=== PATIENT | male | born 1975 | race Caucasian/White ===

== ENCOUNTER 2021-09-26 09:56 | Emergency (ER) | payer MEDICAID ==
[~2021-09-26] VITALS: Ht 167.6 cm; Wt 72.7 kg
[2021-09-26 10:43] LABS: BASOPHILS # (AUTO) 0.1 X10'3 (0-0.2); EOSINOPHILS # (AUTO) 0.2 X10'3 (0-0.9); PLATELET COUNT 576 X10'3 (140-440)
[2021-09-26 10:44] LABS: BASOPHILS % (AUTO) 0.7 % (0-1); EOSINOPHILS % (AUTO) 1.8 % (0-6); LYMPHOCYTES # (AUTO) 2.9 X10'3 (1.1-4.8); LYMPHOCYTES % (AUTO) 22.5 % (21-51); MEAN PLATELET VOLUME 8.3 FL (7.4-10.4); MONOCYTES # (AUTO) 0.6 X10'3 (0-0.9); MONOCYTES % (AUTO) 4.5 % (2-12); NEUTROPHILS % (AUTO) 70.5 % (42-75); WHITE BLOOD COUNT 12.8 X10'3 (4.5-11.0)
[2021-09-26 11:15] LABS: ALANINE AMINOTRANSFERASE 43 U/L (12-78); ALBUMIN 2.8 G/DL (3.4-5.0); ALBUMIN/GLOBULIN RATIO 0.6 (1.1-1.5); ALKALINE PHOSPHATASE 146 IU/L (46-116); ANION GAP 10 (8-16); ASPARTATE AMINO TRANSFERASE 55 U/L (10-37); BILIRUBIN,TOTAL 0.5 MG/DL (0.1-1.0); BLOOD UREA NITROGEN 14 MG/DL (7-18); BUN/CREATININE RATIO 22.6 (5.4-32.0); CALCIUM 8.3 MG/DL (8.5-10.1); CHLORIDE 101 MMOL/L (99-107); CREATININE 0.62 MG/DL (0.60-1.10); GLUCOSE 89 MG/DL (70-104); POTASSIUM 4.3 MMOL/L (3.5-5.1); SODIUM 139 MMOL/L (135-145); TOTAL CARBON DIOXIDE 28.2 MMOL/L (24-32); TOTAL PROTEIN 7.4 G/DL (6.4-8.2); eGFR > 90 ML/MIN
[2021-09-26 11:39] LABS: RED BLOOD COUNT 5.31 X10'6 (4.70-6.10)
[2021-09-26 11:40] LABS: HEMATOCRIT 28.4 % (42.0-52.0); HEMOGLOBIN 8.8 g/dl (14.0-17.9); MEAN CORPUSCULAR HEMOGLOBIN 16.5 PG (27.0-31.0); MEAN CORPUSCULAR VOLUME 53.4 FL (78-98); RED CELL DISTRIBUTION WIDTH 21.8 % (11.5-14.5)
--- NOTE | 2021-09-26 12:27 | NUR ---
Patient falls asleep repeatedly during assessment.
[2021-09-26 13:04] VITALS: BP 122/73
--- NOTE | 2021-09-26 13:04 | NUR ---
Patient given sandwich and water upon discharge.
[2021-09-26] MEDS ORDERED: LIDOcaine 1% W/epiNEPHrine 1:100,000 20ml vial SQ ONE (13:05)
[2021-09-26] MEDS ORDERED: sulfamethoxazole/trimethoprim DS (800/160mg) tablet PO ONE (13:05)
[2021-09-26 14:10] LABS: PLATELET ESTIMATE INCREASED; POLYCHROMASIA 1+
[2021-09-26 14:11] LABS: ANISOCYTOSIS 3+; MICROCYTOSIS 3+
[2021-09-26 14:12] LABS: TARGET CELLS FEW
[2021-09-26 14:13] LABS: ELLIPTOCYTES FEW; HYPOCHROMASIA 1+; TEAR DROP CELLS FEW
[2021-09-26 14:14] LABS: LARGE PLATELETS FEW
[2021-09-26] MEDS ORDERED: SULF1TAB49 PO ×3 (14:51→14:57)
== END 2021-09-26 15:38 | disposition home or self-care (01) ==
LOC: ER 09:57
DX: L02.511 Cutaneous abscess of right hand (principal); R10.9 Unspecified abdominal pain; D72.829 Elevated white blood cell count, unspecified; F15.10 Other stimulant abuse, uncomplicated; Z79.899 Other long term (current) drug therapy
CPT/HCPCS: 10060; 36415; 80053; 85008; 85025; 93971; 99284

== ENCOUNTER 2022-02-11 19:41 | Inpatient (IN) | payer MEDICAID ==
[~2022-02-11] VITALS: Ht 167.6 cm; Wt 72.7 kg
[2022-02-11 20:22] LABS: ALANINE AMINOTRANSFERASE 21 U/L (12-78); ALBUMIN 2.3 G/DL (3.4-5.0); ALBUMIN/GLOBULIN RATIO 0.4 (1.1-1.5); ALKALINE PHOSPHATASE 197 IU/L (46-116); ANION GAP 6 (8-16); ASPARTATE AMINO TRANSFERASE 32 U/L (10-37); BILIRUBIN,TOTAL 0.2 MG/DL (0.1-1.0); BLOOD UREA NITROGEN 21 MG/DL (7-18); BUN/CREATININE RATIO 25.9 (5.4-32.0); CALCIUM 8.7 MG/DL (8.5-10.1); CHLORIDE 101 MMOL/L (99-107); CREATININE 0.81 MG/DL (0.60-1.10); GLUCOSE 101 MG/DL (70-104); POTASSIUM 4.3 MMOL/L (3.5-5.1); SODIUM 137 MMOL/L (135-145); TOTAL CARBON DIOXIDE 30.4 MMOL/L (24-32); TOTAL PROTEIN 7.7 G/DL (6.4-8.2); eGFR > 90 ML/MIN
[2022-02-11 20:46] LABS: HEMATOCRIT 26.6 % (42.0-52.0); HEMOGLOBIN 8.1 g/dl (14.0-17.9); MEAN CORPUSCULAR HEMOGLOBIN 15.8 PG (27.0-31.0); MEAN CORPUSCULAR HGB CONC 30.5 g/dL (33.0-36.5); MEAN CORPUSCULAR VOLUME 51.9 FL (78-98); MEAN PLATELET VOLUME 8.4 FL (7.4-10.4); PLATELET COUNT 501 X10'3 (140-440); RED BLOOD COUNT 5.13 X10'6 (4.70-6.10); WHITE BLOOD COUNT 12.5 X10'3 (4.5-11.0)
[2022-02-11 20:55] LABS: NUCLEATED RED BLOOD CELLS 2 /100WBC (0-0); TOTAL CELLS COUNTED 100
[2022-02-11 20:56] LABS: ANISOCYTOSIS 3+; HYPOCHROMASIA 2+; MICROCYTOSIS 3+; PLATELET ESTIMATE INCREASED; POLYCHROMASIA 1+
[2022-02-11 20:57] LABS: LARGE PLATELETS FEW; SPHEROCYTES 1+; TARGET CELLS FEW
[2022-02-11] MEDS ORDERED: aspirin 325mg tablet PO ONE (21:10)
[2022-02-12] VITALS (10 sets, daily range): BP systolic 80–131; BP diastolic 50–84
[2022-02-12] MEDS ORDERED: HYDROcodone/acetaminophen 5mg/325mg tablet PO PRN (00:05)
[2022-02-12] MEDS ORDERED: diphenhydrAMINE 25mg capsule PO PRN (00:05)
[2022-02-12] MEDS ORDERED: metoprolol tartrate 1mg/ml inj IV PRN (00:05)
[2022-02-12] MEDS ORDERED: aminophylline 250mg/10ml inj. IV PRN (00:05)
[2022-02-12] MEDS ORDERED: regadenoson 0.4mg/5ml syringe IV PRN (00:05)
[2022-02-12] MEDS ORDERED: diphenhydrAMINE 50 mg/ml inj IV PRN (00:05)
[2022-02-12] MEDS ORDERED: nitroGLYCERIN 0.4mg SUBLingual tab SL PRN (00:05)
[2022-02-12] MEDS ORDERED: ondansetron 4mg rapidly disintigrating tab PO PRN (00:05)
[2022-02-12] MEDS ORDERED: mag hydrox/Alum hydrox/simeth 30ml oral suspension PO PRN (00:05)
[2022-02-12] MEDS ORDERED: acetaminophen 650mg rectal suppository RC PRN (00:05)
[2022-02-12] MEDS ORDERED: morphine 2 MG/ML inj. syringe IV PRN (00:05)
[2022-02-12] MEDS ORDERED: HYDROmorphone inj. 0.5 MG/0.5 ML DISP.SYRIN IV PRN (00:05)
[2022-02-12] MEDS ORDERED: magnesium hydroxide 30ml (MOM) UD suspension PO PRN (00:05)
[2022-02-12] MEDS ORDERED: metoclopramide 5 mg/ml inj IV PRN (00:05)
[2022-02-12] MEDS ORDERED: bisacodyl 10mg suppository rectal RC PRN (00:05)
[2022-02-12] MEDS ORDERED: acetaminophen 325mg tablet PO PRN ×2 (00:05)
[2022-02-12 00:48] LABS: MAGNESIUM 2.1 MG/DL (1.5-2.4); PHOSPHORUS 3.8 MG/DL (2.3-4.5)
[2022-02-12] MEDS ORDERED: NO HOME MEDS (01:26)
[2022-02-12 01:50] LABS: APTT 23 SECONDS (22-32); D-DIMER 0.78 MG/L FEU (0-0.50)
[2022-02-12] MEDS: heparin, porcine 5000 units/ml vial SQ SCH ×2 (07:13→19:11)
[2022-02-12] MEDS: pantoprazole 40mg Tablet.DR PO SCH (07:13)
[2022-02-12] MEDS: docusate sod 100mg capsule PO SCH ×2 (07:14→19:11)
[2022-02-12] MEDS: normal saline 1000ml 1,000 ML IV SCH ×3 (07:14→19:25)
[2022-02-12] MEDS ORDERED: magnesium 4gm in 100ml NS 100 ML IV PRN (08:25)
[2022-02-12] MEDS ORDERED: magnesium Cl slow-release 64mg tablet PO PRN (08:25)
[2022-02-12] MEDS ORDERED: PERFLUTREN PROTEIN-A MICROSPHR (Optison) 0.22 MG/ML 3ML VIAL IV ONE (08:25)
[2022-02-12] MEDS ORDERED: potassium CL 10mEq/100ml bag 100 ML IV PRN (08:25)
[2022-02-12] MEDS ORDERED: potassium Cl 20 mEq SR tablet PO PRN ×2 (08:25)
[2022-02-12] MEDS: aspirin 81mg tab.chew PO SCH (08:30)
[2022-02-12] MEDS ORDERED: iohexol 350MG/ML 100ml bottle IV ONE (08:38)
--- NOTE | 2022-02-12 08:43 | NUR ---
TRIED TO CALL REPORT ON PT ,PRIMARY RN IS BUSY DOING MED PASS AND SHE WILL CALL ME IN 5 MINS.
--- NOTE | 2022-02-12 09:00 | NUR ---
Patient in room PCU 3017. I have received report from Quinton RUCKER and had the opportunity to ask questions and assume patient care.
[2022-02-12 09:55] LABS: % IRON SATURATION 6 % (11-46); IRON 22 UG/DL (53-167); TOTAL IRON BINDING CAPACITY 349 UG/DL (259-388)
[2022-02-12 10:00] LABS: CHOL/HDL RATIO 2.7 (0.00-4.99); CHOLESTEROL 138 MG/DL (0-200); HDL CHOLESTEROL 52 MG/DL (35-60); LDL CHOLESTEROL 77 MG/DL (50-100); TRIGLYCERIDES 47 MG/DL (20-135)
--- NOTE | 2022-02-12 10:53 | NUR ---
Paged Dr. Warren regarding results of patients test. Message: [id number], Darío Colon. Radiology called looking for you, they said pt has masses in abdomen, possible cancer. He is putting in the notes/rec now. Aliyah [facility] 1510.
[2022-02-12 11:01] LABS: FERRITIN 15 NG/ML (26-388)
--- NOTE | 2022-02-12 12:12 | NUR ---
Paged Dr. Warren regarding results from [facility] are back and pts is begging for food. Message: [id number], Darío Colon. Results from [facility] are back. Pt is following me around the unit begging for food. Can I please get him some food? Aliyah 1636.
[2022-02-12 15:25] LABS: CLARITY,URINE CLEAR (Clear); COLOR,URINE YELLOW (Yellow); GLUCOSE, URINE NEGATIVE (Neg); KETONES,URINE NEGATIVE (Neg); LEUKOCYTE ESTERASE ,URINE NEGATIVE (Neg); NITRITES, URINE NEGATIVE (Neg); OCCULT BLOOD,URINE NEGATIVE (Neg); PROTEIN,URINE NEGATIVE (Neg); UROBILINOGEN,URINE 0.2 E.U/dL (0.2-1.0)
[2022-02-12 15:27] LABS: UA COLLECTION TYPE NON-SPECIFIED
[2022-02-12 15:30] LABS: URINE AMPHETAMINE SCREEN POSITIVE (Neg); URINE BARBITUATE SCREEN NEGATIVE (Neg); URINE BENZODIAZEPINES SCREEN NEGATIVE (Neg); URINE CANNABINOID SCREEN NEGATIVE (Neg); URINE COCAINE SCREEN NEGATIVE (Neg); URINE METHADONE SCREEN NEGATIVE (Neg); URINE OPIATE SCREEN NEGATIVE (Neg); URINE PHENCYCLIDINE SCREEN NEGATIVE (Neg)
--- NOTE | 2022-02-12 15:50 | NUR ---
Patient is requesting for his back to be looked at, he states he can taste spinal fluid at times. He says his back is in a lot of pain. More than it ever has been. Message: [id number], Darío Colon. Patients UA and tox screen results came back. He is also requesting for his back to be looked at while he's here. He says its extremely painful, it looks like he has had previous surgeries. Aliyah [facility] 9795.
[2022-02-12] MEDS: HYDROcodone/acetaminophen 10/325mg tab PO PRN (17:52)
--- NOTE | 2022-02-12 18:24 | NUR ---
Problems reprioritized. Patient report given, questions answered & plan of care reviewed with Isabel RUCKER, patient stable at transfer of care.
--- NOTE | 2022-02-12 18:24 | NUR ---
Patient in room PCU 3017. I have received report from Aliyah RUCKER and had the opportunity to ask questions and assume patient care.
[2022-02-12] MEDS: ondansetron/PF 4mg/2ml inj IV PRN (19:11)
[2022-02-12] MEDS: morphine 2 MG/ML inj. syringe IV PRN (19:20)
[2022-02-12] MEDS: K and/or MAG REPLACEMENT MC SCH (19:42)
[2022-02-12] MEDS: diatr meglu/diatrizoate 30ml oral sol.-(3 dose) bottle PO SCH (20:55)
[2022-02-12] MEDS ORDERED: temazepam 15mg capsule PO PRN (21:00)
[2022-02-13 02:00] VITALS: BP 120/76
[2022-02-13] MEDS: normal saline 1000ml 1,000 ML IV SCH (04:10)
[2022-02-13] MEDS: HYDROcodone/acetaminophen 10/325mg tab PO PRN ×2 (04:47→18:58)
[2022-02-13] MEDS: morphine 2 MG/ML inj. syringe IV PRN ×4 (06:06→19:51)
--- NOTE | 2022-02-13 06:17 | NUR ---
Problems reprioritized. Patient report given, questions answered & plan of care reviewed with Aliyah RUCKER.
--- NOTE | 2022-02-13 06:20 | NUR ---
Patient in room PCU 3017. I have received report from Isabel RUCKER and had the opportunity to ask questions and assume patient care.
[2022-02-13] MEDS: pantoprazole 40mg Tablet.DR PO SCH (07:07)
[2022-02-13] MEDS: diatr meglu/diatrizoate 30ml oral sol.-(3 dose) bottle PO SCH ×2 (07:08→10:30)
[2022-02-13 07:15] VITALS: BP 125/82
[2022-02-13 07:27] LABS: MEAN PLATELET VOLUME 8.7 FL (7.4-10.4); PLATELET COUNT 447 X10'3 (140-440); WHITE BLOOD COUNT 9.9 X10'3 (4.5-11.0)
[2022-02-13 07:47] LABS: ALANINE AMINOTRANSFERASE 21 U/L (12-78); ALBUMIN/GLOBULIN RATIO 0.4 (1.1-1.5); ALKALINE PHOSPHATASE 178 IU/L (46-116); ANION GAP 4 (8-16); ASPARTATE AMINO TRANSFERASE 38 U/L (10-37); BILIRUBIN,TOTAL 0.2 MG/DL (0.1-1.0); BLOOD UREA NITROGEN 18 MG/DL (7-18); BUN/CREATININE RATIO 26.5 (5.4-32.0); CALCIUM 7.8 MG/DL (8.5-10.1); CHLORIDE 103 MMOL/L (99-107); CHOL/HDL RATIO 2.7 (0.00-4.99); CHOLESTEROL 126 MG/DL (0-200); CREATININE 0.68 MG/DL (0.60-1.10); GLUCOSE 94 MG/DL (70-104); HDL CHOLESTEROL 47 MG/DL (35-60); LDL CHOLESTEROL 63 MG/DL (50-100); MAGNESIUM 1.8 MG/DL (1.5-2.4); POTASSIUM 4.5 MMOL/L (3.5-5.1); SODIUM 136 MMOL/L (135-145); TOTAL CARBON DIOXIDE 29.1 MMOL/L (24-32); TOTAL PROTEIN 6.6 G/DL (6.4-8.2); TRIGLYCERIDES 45 MG/DL (20-135); eGFR > 90 ML/MIN
[2022-02-13] MEDS: heparin, porcine 5000 units/ml vial SQ SCH ×2 (08:00→19:54)
[2022-02-13] MEDS: K and/or MAG REPLACEMENT MC SCH ×2 (08:00→20:00)
[2022-02-13 08:21] LABS: HEMATOCRIT 22.1 % (42.0-52.0); MEAN CORPUSCULAR HEMOGLOBIN 16.6 PG (27.0-31.0); MEAN CORPUSCULAR HGB CONC 31.6 g/dL (33.0-36.5); MEAN CORPUSCULAR VOLUME 52.7 FL (78-98); RED CELL DISTRIBUTION WIDTH 21.2 % (11.5-14.5)
[2022-02-13] MEDS: aspirin 81mg tab.chew PO SCH (08:30)
--- NOTE | 2022-02-13 08:30 | NUR ---
Paged Dr. Warren regarding pts critical Hgb of 7.0. Message: [id number], Darío Colon. Pt has a critical Hgb of 7.0, hct 22.1. [facility] 2160.
[2022-02-13 08:54] LABS: PLATELET ESTIMATE INCREASED; TOTAL CELLS COUNTED 100
[2022-02-13 08:55] LABS: ANISOCYTOSIS 3+; HYPOCHROMASIA 2+; MICROCYTOSIS 3+; SCHISTOCYTES FEW
[2022-02-13 08:56] LABS: LARGE PLATELETS FEW
[2022-02-13] MEDS: docusate sod 100mg capsule PO SCH ×2 (09:25→18:57)
[2022-02-13] MEDS: sodium ferric gluc complex inj 125 MG in normal saline 100ml IV soln 100 ML IV SCH (09:25)
[2022-02-13] MEDS ORDERED: iohexol 300mg/ml 100ml inj. ONE (10:41)
[2022-02-13] MEDS: nicotine 21mg patch - 24 hr TD SCH (10:42)
[2022-02-13 11:00] VITALS: BP 123/77
[2022-02-13 11:53] LABS: OCCULT BLOOD STOOL NEGATIVE (Neg)
--- NOTE | 2022-02-13 12:13 | NUR ---
Paged Dr. Warren regarding whether patient can eat. He is back from CT. Message: [id number], Darío Colon. Pt is back from his CT, he is begging for food again. Is it ok to restart diet? Aliyah [facility] 8824.
--- NOTE | 2022-02-13 12:29 | NUR ---
Met with patient in regards to substance use and to see if patient wanted any resources for treatment options. Patient is interested in inpatient and outpatient services. I gave patient [facility] number to call to start that process. I gave patient a list of outpatient treatment facilities and my card to call me with any questions.
[2022-02-13 15:00] VITALS: BP 131/85
[2022-02-13 18:00] VITALS: BP 128/78
--- NOTE | 2022-02-13 18:00 | NUR ---
Problems reprioritized. Patient report given, questions answered & plan of care reviewed with Lisa RUCKER, Patient stable at transfer of care.
--- NOTE | 2022-02-13 18:15 | NUR ---
Patient in room PCU 3017. I have received report from lorraine RUCKER and had the opportunity to ask questions and assume patient care.
[2022-02-13] MEDS: ondansetron/PF 4mg/2ml inj IV PRN (19:54)
[2022-02-13 22:00] VITALS: BP 95/50
[2022-02-14] MEDS: morphine 2 MG/ML inj. syringe IV PRN ×2 (01:08→06:55)
[2022-02-14 02:00] VITALS: BP 117/67
--- NOTE | 2022-02-14 05:31 | NUR ---
Pt refusing tele box
[2022-02-14 06:00] VITALS: BP 124/78
--- NOTE | 2022-02-14 06:10 | NUR ---
Patient in room PCU 3017. I have received report from Lisa RUCKER and had the opportunity to ask questions and assume patient care.
--- NOTE | 2022-02-14 06:15 | NUR ---
Problems reprioritized. Patient report given, questions answered & plan of care reviewed with lorraine coronado.
[2022-02-14] MEDS: pantoprazole 40mg Tablet.DR PO SCH (07:04)
[2022-02-14] MEDS: ondansetron/PF 4mg/2ml inj IV PRN (07:04)
[2022-02-14] MEDS: nicotine 21mg patch - 24 hr TD SCH (07:04)
[2022-02-14] MEDS: docusate sod 100mg capsule PO SCH (07:04)
[2022-02-14 08:01] LABS: MEAN CORPUSCULAR VOLUME 54.4 FL (78-98)
[2022-02-14 08:04] LABS: MEAN CORPUSCULAR HEMOGLOBIN 15.7 PG (27.0-31.0); MEAN CORPUSCULAR HGB CONC 28.9 g/dL (33.0-36.5); MEAN PLATELET VOLUME 8.6 FL (7.4-10.4); PLATELET COUNT 443 X10'3 (140-440); RED BLOOD COUNT 4.22 X10'6 (4.70-6.10); RED CELL DISTRIBUTION WIDTH 21.8 % (11.5-14.5); WHITE BLOOD COUNT 9.4 X10'3 (4.5-11.0)
[2022-02-14 08:10] LABS: HEMOGLOBIN 6.6 g/dl (14.0-17.9)
[2022-02-14 08:19] LABS: ALANINE AMINOTRANSFERASE 23 U/L (12-78); ALBUMIN 2.1 G/DL (3.4-5.0); ALBUMIN/GLOBULIN RATIO 0.5 (1.1-1.5); ALKALINE PHOSPHATASE 177 IU/L (46-116); ANION GAP 4 (8-16); ASPARTATE AMINO TRANSFERASE 40 U/L (10-37); BILIRUBIN,TOTAL 0.1 MG/DL (0.1-1.0); BLOOD UREA NITROGEN 16 MG/DL (7-18); BUN/CREATININE RATIO 26.2 (5.4-32.0); CHLORIDE 101 MMOL/L (99-107); CREATININE 0.61 MG/DL (0.60-1.10); GLUCOSE 86 MG/DL (70-104); MAGNESIUM 1.7 MG/DL (1.5-2.4); PHOSPHORUS 3.3 MG/DL (2.3-4.5); POTASSIUM 4.2 MMOL/L (3.5-5.1); SODIUM 136 MMOL/L (135-145); TOTAL PROTEIN 6.7 G/DL (6.4-8.2); eGFR > 90 ML/MIN
--- NOTE | 2022-02-14 08:23 | NUR ---
Paged Dr. Warren regarding patients critical Hgb of 6.6. Message: [id number]. Pts Hgb is 6.6, Hct 23.0. Pt has an 0800 IV iron due. [facility] 5473.
[2022-02-14] MEDS: sodium ferric gluc complex inj 125 MG in normal saline 100ml IV soln 100 ML IV SCH (09:20)
[2022-02-14] MEDS: HYDROcodone/acetaminophen 10/325mg tab PO PRN (09:31)
--- NOTE | 2022-02-14 10:27 | NUR ---
Paged Dr. Warren regarding Pts critical Hgb again of 6.6. Message: [id number], Darío Colon. I hadn't heard from you, are you wanting pt to get any blood today Hgb 6.6? Aliyah [facility] 3493.
[2022-02-14 10:28] LABS: ANISOCYTOSIS 3+; HYPOCHROMASIA 2+; MICROCYTOSIS 3+; PLATELET ESTIMATE NORMAL; TOTAL CELLS COUNTED 100
[2022-02-14 10:29] LABS: ELLIPTOCYTES FEW; LARGE PLATELETS FEW; SCHISTOCYTES FEW
[2022-02-14 11:00] VITALS: BP 114/68
[2022-02-14 12:34] VITALS: BP 109/70
[2022-02-14 12:49] VITALS: BP 110/70
[2022-02-14 13:49] VITALS: BP 114/74
--- NOTE | 2022-02-14 16:40 | NUR ---
Patient left AMA, he was upset he couldn't not eat any food. He was not understanding the reasoning for being NPO for a EGD in the am. I was about to hang his second unit of blood and told him he was about to get more blood, he didn't want it and left. Earlier in the day he snuck off the unit and went to the cafeteria and bought chips out of the vending machine. Which then postponed his EGD which he was about to have.
--- NOTE | 2022-02-14 16:44 | NUR ---
Paged Dr. Warren regarding patient leaving AMA. Message: [id number], Darío Colon. Pt just left AMA because he couldn't eat. Aliyah [facility] 5476.
== END 2022-02-14 16:48 | disposition left against medical advice (07) | DRG 203 ==
LOC: ER 19:42 → ED HOLD 02-12 00:04 → EDBEDREQ 02-12 08:19 → PCU 3S 02-12 10:15
PROVIDERS: ADMIT Family Medicine; ATTEND Family Medicine
PROC: B32T1ZZ Computerized Tomography (CT Scan) of Left Pulmonary Artery using Low Osmolar Contrast (ICD-10-PCS; 2022-02-12)
PROC: B3201ZZ Computerized Tomography (CT Scan) of Thoracic Aorta using Low Osmolar Contrast (ICD-10-PCS; 2022-02-12)
PROC: B32S1ZZ Computerized Tomography (CT Scan) of Right Pulmonary Artery using Low Osmolar Contrast (ICD-10-PCS; 2022-02-12)
PROC: 4A02XM4 Measurement of Cardiac Total Activity, External Approach (ICD-10-PCS; 2022-02-12)
PROC: 3E033HZ Introduction of Radioactive Substance into Peripheral Vein, Percutaneous Approach (ICD-10-PCS; 2022-02-12)
PROC: B0201ZZ Computerized Tomography (CT Scan) of Brain using Low Osmolar Contrast (ICD-10-PCS; 2022-02-13)
PROC: BW251ZZ Computerized Tomography (CT Scan) of Chest, Abdomen and Pelvis using Low Osmolar Contrast (ICD-10-PCS; 2022-02-13)
PROC: 30233N1 Transfusion of Nonautologous Red Blood Cells into Peripheral Vein, Percutaneous Approach (ICD-10-PCS; principal; 2022-02-14)
DX: R07.2 Precordial pain (principal); R64 Cachexia; I10 Essential (primary) hypertension; F15.20 Other stimulant dependence, uncomplicated; D50.9 Iron deficiency anemia, unspecified; Z20.822 Contact with and (suspected) exposure to COVID-19; Z53.29 Procedure and treatment not carried out because of patient's decision for other reasons; Z60.2 Problems related to living alone; Z56.0 Unemployment, unspecified; Z59.00 Homelessness unspecified; Z72.0 Tobacco use; Z68.25 Body mass index [BMI] 25.0-25.9, adult; Z71.51 Drug abuse counseling and surveillance of drug abuser; Z71.6 Tobacco abuse counseling
CPT/HCPCS: 36415; 36430; 70470; 71045; 71260; 71275; 74177; 78452; 80053; 80061; 80305; 81003; 82272; 82728; 83036; 83540; 83550; 83735; 83880; 84100; 84443; 84484; 85007; 85025; 85379; 85610; 85730; 86885; 86900; 86901; 86920; 93005; 93017; 93306; 99285; A9500; G0378; J1644; J2270; J2405; J2785; J2916; J3490; J7030; J7040; P9016; Q9963; Q9967

== ENCOUNTER 2022-03-08 18:24 | Emergency (ER) | payer MEDICAID ==
[~2022-03-08] VITALS: Ht 167.6 cm; Wt 68.2 kg
[~2022-03-08 18:24] MED LIST: NO HOME MEDS
--- NOTE | 2022-03-08 20:12 | NUR ---
Pt reports 9/10 abdominal pain. Pt is sleeping before nurse came in and appears drowsy. Pt states last time he used meth was a couple of days ago.
[2022-03-08 22:16] LABS: BASOPHILS % (AUTO) 0.4 % (0-1); EOSINOPHILS # (AUTO) 0.2 X10'3 (0-0.9); EOSINOPHILS % (AUTO) 1.5 % (0-6); LYMPHOCYTES # (AUTO) 1.3 X10'3 (1.1-4.8); LYMPHOCYTES % (AUTO) 12.8 % (21-51); MONOCYTES # (AUTO) 0.6 X10'3 (0-0.9); MONOCYTES % (AUTO) 6.3 % (2-12)
[2022-03-08 22:21] LABS: ALANINE AMINOTRANSFERASE 29 U/L (12-78); ALBUMIN 1.8 G/DL (3.4-5.0); ALBUMIN/GLOBULIN RATIO 0.4 (1.1-1.5); ALKALINE PHOSPHATASE 303 IU/L (46-116); ANION GAP 4 (8-16); ASPARTATE AMINO TRANSFERASE 39 U/L (10-37); BILIRUBIN,TOTAL 0.2 MG/DL (0.1-1.0); BLOOD UREA NITROGEN 15 MG/DL (7-18); BUN/CREATININE RATIO 24.2 (5.4-32.0); CALCIUM 7.6 MG/DL (8.5-10.1); CHLORIDE 103 MMOL/L (99-107); CREATININE 0.62 MG/DL (0.60-1.10); GLUCOSE 95 MG/DL (70-104); POTASSIUM 3.8 MMOL/L (3.5-5.1); SODIUM 138 MMOL/L (135-145); TOTAL CARBON DIOXIDE 31.5 MMOL/L (24-32); TOTAL PROTEIN 6.3 G/DL (6.4-8.2); eGFR > 90 ML/MIN
[2022-03-08 22:30] LABS: HEMOGLOBIN 8.8 g/dl (14.0-17.9); MEAN CORPUSCULAR HEMOGLOBIN 19.1 PG (27.0-31.0); MEAN CORPUSCULAR HGB CONC 31.5 g/dL (33.0-36.5); MEAN CORPUSCULAR VOLUME 60.9 FL (78-98); RED BLOOD COUNT 4.61 X10'6 (4.70-6.10); WHITE BLOOD COUNT 10.5 X10'3 (4.5-11.0)
[2022-03-08 22:31] LABS: MEAN PLATELET VOLUME 8.5 FL (7.4-10.4); PLATELET COUNT 390 X10'3 (140-440); RED CELL DISTRIBUTION WIDTH 28.1 % (11.5-14.5)
[2022-03-08 22:35] LABS: PLATELET ESTIMATE NORMAL
[2022-03-08 22:36] LABS: ANISOCYTOSIS 3+; MICROCYTOSIS 2+
--- NOTE | 2022-03-08 22:57 | NUR ---
Pt is sleeping and in no apparent distress
--- NOTE | 2022-03-09 00:27 | NUR ---
RN provided patient with food. Pt is in no apparent distress. Still awaiting MD
--- NOTE | 2022-03-09 02:18 | NUR ---
Pt becoming aggressive on discharge. Security called to escort patient out of ER.
[2022-03-09 02:20] VITALS: BP 139/86
== END 2022-03-09 02:25 | disposition home or self-care (01) ==
LOC: ER 18:24
DX: K40.90 Unilateral inguinal hernia, without obstruction or gangrene, not specified as recurrent (principal); N50.89 Other specified disorders of the male genital organs; F17.200 Nicotine dependence, unspecified, uncomplicated; Z56.0 Unemployment, unspecified; Z59.00 Homelessness unspecified; Z79.899 Other long term (current) drug therapy
CPT/HCPCS: 36415; 80053; 85008; 85025; 99285